=== PATIENT | female | born 1955 ===

== ENCOUNTER 2019-01-09 10:15 | Outpatient (CLI) | payer MEDICARE ==
--- NOTE | 2019-01-09 10:57 | ULT ---
US Renal Bilateral STANDARD History: R 10.2 pelvic pressure in female Comparison: None. Findings: Real-time grayscale and color evaluation of the kidneys and urinary bladder was performed. Urinary bladder is unremarkable. Prevoid urinary bladder volume is 309 mL in the post void volume is 10 mL. Right kidney measures 9.2 x 4.2 x 4.8 cm with a superior pole 1.2 cm cyst. Left kidney measures 10.6 x 5.3 x 4.8 cm. No renal mass, hydronephrosis, or abnormal calcification. Impression: Small cyst superior pole right kidney otherwise unremarkable exam.
== END 2019-01-09 10:16 | disposition home or self-care (01) ==
LOC: BICULT 10:15
PROVIDERS: ATTEND Urology
DX: N81.11 Cystocele, midline (principal); R10.2 Pelvic and perineal pain; R35.0 Frequency of micturition; N28.1 Cyst of kidney, acquired
CPT/HCPCS: 36415; 76770; 80048; 81001